=== PATIENT | female | born 1985 | race Caucasian/White ===

== ENCOUNTER 2018-07-27 15:33 | Emergency (ER) | payer SELFPAY ==
[~2018-07-27] VITALS: Ht 160 cm; Wt 52.5 kg
[2018-07-27] MEDS ORDERED: CLIN150C14 PO (16:15)
[2018-07-27] MEDS ORDERED: HYDR-971 PO (16:15)
--- NOTE | 2018-07-27 16:15 | PHYS DOC ---
Adult General Chief Complaint Chief Complaint: DENTAL PROBLEM HPI HPI Patient is a 32 year old female who presents with comparing of dental pain for 1 week. Patient states she had dental pain and seen at [facility] and treated with clindamycin and [place] with partial improvement of pain but because her dental appointment is 2 and half weeks from now her pain returned one week ago as a sharp and constant pain with radiation to her left ear. Patient is currently smoking. Review of Systems Review of Systems Constitutional: Denies fever or chills [] Eyes: Denies change in visual acuity, redness, or eye pain [] HENT: Denies nasal congestion or sore throat [] Respiratory: Denies cough or shortness of breath [] Cardiovascular: No additional information not addressed in HPI [] GI: Denies abdominal pain, nausea, vomiting, bloody stools or diarrhea [] : Denies dysuria or hematuria [] Musculoskeletal: Denies back pain or joint pain [] Integument: Denies rash or skin lesions [] Neurologic: Denies headache, focal weakness or sensory changes [] Endocrine: Denies polyuria or polydipsia [] All other systems were reviewed and found to be within normal limits, except as documented in this note. Allergies Allergies Allergies Coded Allergies Type Severity Reaction Last Updated Verified NSAIDS (Non-Steroidal Anti-Inflamma Allergy Unknown 07/27/18 Yes Penicillins Allergy Unknown 07/27/18 Yes Physical Exam Physical Exam Constitutional: Well developed, well nourished, mild distress, non-toxic appearance. [] HENT: Normocephalic, atraumatic, bilateral external ears normal, oropharynx moist, no oral exudates, nose normal, large cavity in tooth #19 with tenderness without abscess. [] Eyes: PERRLA, EOMI, conjunctiva normal, no discharge. [] Neck: Normal range of motion, no tenderness, supple, no stridor. [] Cardiovascular:Heart rate regular rhythm, no murmur [] Lungs & Thorax: Bilateral breath sounds clear to auscultation [] Extremities: No tenderness, no cyanosis, no clubbing, ROM intact, no edema. [] Neurologic: Alert and oriented X 3, normal motor function, normal sensory function, no focal deficits noted. [] Psychologic: Affect anxious, judgement normal, mood normal. [] EKG EKG [] Radiology/Procedures Radiology/Procedures [] Course & Med Decision Making Course & Med Decision Making discharge: I've spoken with the patient and/or caregivers. I've explained the patient's condition, diagnosis and treatment plan based on information available to me at this time. I've answered the patient's and/or caregivers questions and addressed any concerns. The patient and/or caregivers have a good understanding the patient's diagnosis, condition and treatment plan as can be expected at this point. Vital signs have been stabilized. The patient's condition is stable for discharge from the emergency department. The patient will pursue further outpatient evaluation with her primary care provider or other designated consulting physician as outlined in the discharge instructions. Patient and/or caregivers are agreeable to this plan of care and follow-up instructions have been explained in detail. The patient and/or caregivers have received these instructions in written format and expressed understanding of these discharge instructions. The patient and her caregivers are aware that if any significant change in condition or worsening of symptoms should prompt him to immediately return to this of the closest emergency department. If an emergent department is not readily available I would encourage him to call 911. Akshat Disclaimer Dragon Disclaimer This electronic medical record was generated, in whole or in part, using a voice recognition dictation system. Departure Departure: Impression: Primary Impression: Dentalgia Additional Impressions: Dental cavity Tobacco abuse Tobacco abuse counseling Disposition: HOME, SELF-CARE (at 1612) Referrals: PCPJERMAN (PCP) Patient Instructions: Dental Caries, Smoking Cessation, Tips For Success, Toothache-Brief Additional Instructions: Follow-up with your dentist appointment Scripts Hydrocodone Bit/Acetaminophen (NORCO 5-325 TABLET) 1 Each Tablet 1 TAB PO PRN Q6HRS PRN for PAIN, #10 TAB 0 Refills Prov: LAILA REBOLLEDO MD 07/27/18 Clindamycin Hcl (CLINDAMYCIN HCL) 150 Mg Capsule 1 CAP PO TID, #30 CAP Prov: LAILA REBOLLEDO MD 07/27/18 Problem Qualifiers LAILA REBOLLEDO MD Jul 27, 2018 16:15
[2018-07-27 16:30] VITALS: BP 101/76
== END 2018-07-27 16:30 | disposition home or self-care (01) ==
LOC: ER 15:33
DX: K02.9 Dental caries, unspecified (principal); Z72.0 Tobacco use; Z71.6 Tobacco abuse counseling; Z88.6 Allergy status to analgesic agent; Z88.0 Allergy status to penicillin
CPT/HCPCS: 99283

== ENCOUNTER 2020-01-03 18:58 | Emergency (ER) | payer OTHER ==
[~2020-01-03] VITALS: Ht 160 cm; Wt 52.5 kg
[~2020-01-03 18:58] MED LIST: CLIN150C14 PO; HYDR-3165 PO
--- NOTE | 2020-01-03 19:04 | PHYS DOC ---
Past History Past Medical History: Depression Past Surgical History: Tubal ligation Adult General Chief Complaint Chief Complaint: ".. I think I got MRSA again.. I got this bump on my Rt. butt cheek... it just gotten worse the last 4 days... ".." I can't sit down now because of the pain. ..." HPI HPI Patient is a 34 year old female who presents with above hx and complaints cellulitis and abscess on her right gluteal area. Has a central abscess approximately 2 cm and surrounding erythema of approximately 8-12 cm diameter. Patient has had 1 previous episode of MRSA on her arm. Patient denies any history immunosuppression or HIV. Patient denies any travel or specific ill contacts. Patient no travel outside the state. Patient does not remember her last tetanus vaccination. Patient states she is allergic to penicillin but has taken Keflex in the past. Review of Systems Review of Systems Constitutional: Denies fever or chills [] Eyes: Denies change in visual acuity, redness, or eye pain [] HENT: Denies nasal congestion or sore throat [] Respiratory: Denies cough or shortness of breath [] Cardiovascular: No additional information not addressed in HPI [] GI: Denies abdominal pain, nausea, vomiting, bloody stools or diarrhea [] : Denies dysuria or hematuria [] Musculoskeletal: Denies back pain or joint pain [] Integument: Denies rash or skin lesions . The patient []complaints of right gluteal abscess. Neurologic: Denies headache, focal weakness or sensory changes [] Endocrine: Denies polyuria or polydipsia [] All other systems were reviewed and found to be within normal limits, except as documented in this note. Family History Family History Noncontributory to presentation Current Medications Current Medications See nursing for home meds Allergies Allergies Allergies Coded Allergies Type Severity Reaction Last Updated Verified NSAIDS (Non-Steroidal Anti-Inflamma Allergy Unknown 07/27/18 Yes Penicillins Allergy Unknown 07/27/18 Yes Physical Exam Physical Exam Constitutional: in acute distress, non-toxic appearance. [] HENT: Normocephalic, atraumatic, bilateral external ears normal, oropharynx moist, no oral exudates, nose normal. [] Eyes: PERRLA, EOMI, conjunctiva normal, no discharge. [] Neck: Normal range of motion, no tenderness, supple, no stridor. [] Cardiovascular:Heart rate regular rhythm, no murmur [] Lungs & Thorax: Bilateral breath sounds equal apex with scattered wheezes on auscultation [] Abdomen: Bowel sounds normal, soft, no tenderness, no masses, no pulsatile masses. [] Old surgery scars Skin: Warm, dry, no erythema, no rash. Right gluteal abscess and cellulitis as per history of present illness. Back: No tenderness, no CVA tenderness. [] Extremities: No tenderness, no cyanosis, no clubbing, ROM intact, no edema. [] Neurologic: Alert and oriented X 3, normal motor function, normal sensory function, no focal deficits noted. [] Psychologic: Affect normal, judgement normal, mood normal. [] EKG EKG [] Radiology/Procedures Radiology/Procedures [] Course & Med Decision Making Course & Med Decision Making Pertinent Labs and Imaging studies reviewed. (See chart for details) Procedure Note: Incision and drainage-Area cellulitis cleaned extensively with Betadine. Incision with 11 blade x 1 stick. Appeared to have adequate drainage of pus Patient is to do frequent sitz baths or showers. Patient use warm compresses of salt and or Epsom salts. 4 times a day. Massage Polysporin into the area 4 times a day after compresses. Take Bactrim DS twice a day. Follow-up primary care. Return if any concerns. Impression: 1. Cellulitis / Abscess [] Dragon Disclaimer Dragon Disclaimer This electronic medical record was generated, in whole or in part, using a voice recognition dictation system. Departure Departure: Disposition: HOME/RESIDENCE PRIOR TO ADM Condition: STABLE Referrals: PCP,NO (PCP) Scripts Sulfamethoxazole/Trimethoprim (BACTRIM DS TABLET) 1 Each Tablet 1 TAB PO BID for abscess for 10 Days, #20 TAB 0 Refills Prov: CHRISTIANNE SCHROEDER MD 01/03/20 Akshat Disclaimer This chart was dictated in whole or in part using Voice Recognition software in a busy, high-work load, and often noisy Emergency Department environment. It may contain unintended and wholly unrecognized errors or omissions. CHRISTIANNE SCHROEDER MD Jan 03, 2020 19:04
[2020-01-03 19:27] VITALS: BP 102/68
[2020-01-03] MEDS ORDERED: SULF1TAB24 PO (19:42)
[2020-01-03] MEDS ORDERED: SMZ/TMP 800/160MG TABLET. PO ONE (19:45)
[2020-01-03] MEDS ORDERED: MORPHINE SULFATE 10 MG/ML SYRINGE. SQ ONE (19:45)
[2020-01-03] MEDS ORDERED: DIPH,PERTUSS(ACELL),TET VAC/PF 0.5 ML SYRINGE. VAX IM ONE (19:45)
== END 2020-01-03 21:00 | disposition home or self-care (01) ==
LOC: ER 18:58
DX: L02.31 Cutaneous abscess of buttock (principal); L03.317 Cellulitis of buttock; Z88.0 Allergy status to penicillin; Z88.6 Allergy status to analgesic agent
CPT/HCPCS: 10060; 90471; 90715; 96372; J2270; 99284-25

== ENCOUNTER 2020-01-14 13:24 | Emergency (ER) | payer OTHER ==
[~2020-01-14] VITALS: Ht 160 cm; Wt 53.1 kg
[2020-01-14 13:24] VITALS: BP 113/70
[~2020-01-14 13:24] MED LIST changes: +SULF1TAB24 PO
--- NOTE | 2020-01-14 14:28 | RAD ---
RIBS LEFT AND PA CHEST History: Fall Comparison: None. Findings: 2 views of the chest and 3 additional views of the left ribs are submitted. There is no pneumothorax, pleural fluid, infiltrate. Heart size is within normal limits. No displaced left rib fracture is identified. Appearance of lucency of the left lateral fifth rib on one view is believed to be artifactual as not seen on other views. Impression: 1. No displaced left rib fracture is identified by radiographs. Electronically signed by: Alan Scruggs MD (01/14/2020 2:25 PM) [facility]
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
== END 2020-01-14 15:00 | disposition home or self-care (01) ==
LOC: ER 13:24
DX: S20.212A Contusion of left front wall of thorax, initial encounter (principal); Z88.6 Allergy status to analgesic agent; Z88.0 Allergy status to penicillin; Y04.0XXA Assault by unarmed brawl or fight, initial encounter; Y93.89 Activity, other specified; Y92.89 Other specified places as the place of occurrence of the external cause; Y99.8 Other external cause status
CPT/HCPCS: 71101; 99283

== ENCOUNTER 2020-05-19 09:38 | Emergency (ER) | payer OTHER ==
[~2020-05-19] VITALS: Ht 160 cm; Wt 53.2 kg
[2020-05-19] MEDS ORDERED: ASPIRIN CHEWABLE 81 MG TABLET. ONE (09:58)
[2020-05-19 10:00] VITALS: BP 126/60
[2020-05-19] MEDS ORDERED: ASPIRIN CHEWABLE 81 MG TABLET. PO ONE (10:45)
--- NOTE | 2020-05-19 10:46 | PHYS DOC ---
Past History Past Medical History: No Pertinent History Past Surgical History: No Surgical History Smoking: Cigarettes Alcohol Use: None Adult General Chief Complaint Chief Complaint: CHEST PAIN HPI HPI Patient is a 34-year-old female presents for left-sided chest pain. Onset was 2 days ago without any known inciting event. Palpation to chest wall makes worse, nothing known makes better. Pain described as "it feels like a pulled a muscle", has been constant since onset, and rated a 7 out of 10 for pain severity. Nothing is been taken for the pain since onset. It is present during activity and at rest. Patient admits history of arrhythmia, anxiety, and tobacco abuse. Patient denies any personal cardiac history or early family history of cardiac disease. Ongoing chest pain while watching her children concerned her causing her to present to our ER for further evaluation Review of Systems Review of Systems Fourteen body systems of review of systems have been reviewed. See HPI for pertinent positives and negative responses, other kwong all other systems are negative, non-pertinent or non-contributory Current Medications Current Medications Current Medications Medications (Trade) Dose Ordered Sig/Luis Miguel Start Time Stop Time Status Last Admin Dose Admin Aspirin (Aspirin Chewable) 81 mg STK-MED ONCE 05/19/20 09:58 05/19/20 09:58 DC Allergies Allergies Allergies Coded Allergies Type Severity Reaction Last Updated Verified NSAIDS (Non-Steroidal Anti-Inflamma Allergy Unknown 07/27/18 Yes Penicillins Allergy Unknown 07/27/18 Yes Physical Exam Physical Exam Constitutional: Well developed, well nourished, no acute distress, non-toxic appearance. [] HENT: Normocephalic, atraumatic, bilateral external ears normal, oropharynx moist, no oral exudates, nose normal. [] Eyes: PERRLA, EOMI, conjunctiva normal, no discharge. [] Neck: Normal range of motion, no tenderness, supple, no stridor. [] Cardiovascular:Heart rate regular rhythm, no murmur [] Lungs & Thorax: Bilateral breath sounds clear to auscultation [] Abdomen: Bowel sounds normal, soft, no tenderness, no masses, no pulsatile masses. [] Skin: Warm, dry, no erythema, no rash. [] Back: No tenderness, no CVA tenderness. [] Extremities: No tenderness, no cyanosis, no clubbing, ROM intact, no edema. [] Neurologic: Alert and oriented X 3, normal motor function, normal sensory function, no focal deficits noted. [] Psychologic: Affect normal, judgement normal, mood normal. [] Current Patient Data Vital Signs Vital Signs Date Time Temp Pulse Resp B/P (MAP) Pulse Ox O2 Delivery O2 Flow Rate FiO2 05/19/20 10:00 97.9 90 16 126/60 (82) 99 Room Air Lab Results Laboratory Tests Test 05/19/20 10:06 05/19/20 12:00 White Blood Count 10.2 x10^3/uL Red Blood Count 4.37 x10^6/uL Hemoglobin 11.5 g/dL Hematocrit 35.8 % Mean Corpuscular Volume 82 fL Mean Corpuscular Hemoglobin 26 pg Mean Corpuscular Hemoglobin Concent 32 g/dL Red Cell Distribution Width 16.5 % Platelet Count 217 x10^3/uL Neutrophils (%) (Auto) 69 % Lymphocytes (%) (Auto) 20 % Monocytes (%) (Auto) 10 % Eosinophils (%) (Auto) 1 % Basophils (%) (Auto) 0 % Neutrophils # (Auto) 7.0 x10^3uL Lymphocytes # (Auto) 2.1 x10^3/uL Monocytes # (Auto) 1.0 x10^3/uL Eosinophils # (Auto) 0.1 x10^3/uL Basophils # (Auto) 0.0 x10^3/uL Sodium Level 138 mmol/L Potassium Level 3.7 mmol/L Chloride Level 104 mmol/L Carbon Dioxide Level 25 mmol/L Anion Gap 9 Blood Urea Nitrogen 11 mg/dL Creatinine 0.9 mg/dL Estimated GFR (Cockcroft-Gault) 70.8 BUN/Creatinine Ratio 12 Glucose Level 110 mg/dL Calcium Level 8.7 mg/dL Total Bilirubin 0.3 mg/dL Aspartate Amino Transf (AST/SGOT) 15 U/L Alanine Aminotransferase (ALT/SGPT) 20 U/L Alkaline Phosphatase 56 U/L Creatine Kinase 91 U/L Troponin I Quantitative < 0.017 ng/mL Total Protein 6.6 g/dL Albumin 3.8 g/dL Albumin/Globulin Ratio 1.4 Urine Collection Type Unknown Urine Color Straw Urine Clarity Hazy Urine pH 7.0 Urine Specific [place] 1.015 Urine Protein Neg Urine Glucose (UA) Neg mg/dL Urine Ketones (Stick) Neg mg/dL Urine Blood Trace Urine Nitrite Neg Urine Bilirubin Neg Urine Urobilinogen Dipstick 0.2 mg/dL Urine Leukocyte Esterase Neg Urine RBC 1-2 /HPF Urine WBC 1-4 /HPF Urine Squamous Epithelial Cells Mod /LPF Urine Bacteria Few /HPF Current Medications Medications (Trade) Dose Ordered Sig/Luis Miguel Route PRN Reason Start Time Stop Time Status Last Admin Dose Admin Aspirin (Aspirin Chewable) 81 mg STK-MED ONCE .ROUTE 05/19/20 09:58 05/19/20 09:58 DC Aspirin (Aspirin Chewable) 324 mg 1X ONCE PO 05/19/20 10:45 05/19/20 10:51 DC Sodium Chloride 1,000 ml @ 1,000 mls/hr 1X ONCE IV 05/19/20 11:00 05/19/20 11:59 DC 05/19/20 10:05 EKG EKG EKG ordered and obtained by myself at 1001 hrs. as normal sinus rhythm at 71 bpm, unremarkable intervals, no axis deviation, no ischemic findings, no STEMI Radiology/Procedures Radiology/Procedures PROCEDURE: CHEST AP ONLY CHEST AP ONLY INDICATION: Reason: chest pain / Spl. Instructions: / History: . COMPARISON STUDY: 01/14/2020. FINDINGS: Lungs: Normal lung volume. No pulmonary mass or consolidation. The tracheobronchial tree and hilar structures are normal. Pleura: No pleural effusion or pneumothorax. Heart and Mediastinum: The cardiomediastinal silhouette is normal. The great vessels of the thorax are normal. IMPRESSION: No acute cardiopulmonary process. Electronically signed by: Alan Rg MD (05/19/2020 11:50 AM) [id number] Course & Med Decision Making Course & Med Decision Making Patient seen by myself on immediate ED arrival Vital signs stable, patient administered 1 L normal saline and 4 baby aspirin Comprehensive history and physical exam revealed likely costochondritis; however, could not definitively rule out ACS Pertinent lab and imaging performed Nonetheless, in the middle of patient's ED work-up, patient verbalized that she wanted to leave Patient who had full capacity was educated on the dangers of leaving mid work- up; however, she cited that she was worried about her children at home and did not want to be here anymore Patient understood the risks of leaving AGAINST MEDICAL ADVICE and subsequently signed out AMA Patient was advised to follow-up with primary care in outpatient setting or return to ED for further evaluation as needed Dragon Disclaimer Akshat Disclaimer This electronic medical record was generated, in whole or in part, using a voice recognition dictation system. Departure Departure: Impression: Primary Impression: Left against medical advice Additional Impression: Chest pain Disposition: HOME/RESIDENCE PRIOR TO ADM Condition: STABLE Referrals: PCP,NO (PCP) Justification of Admission: Justification of Admission: Justification of Admission Dx: N/A Problem Qualifiers SYLVESTER PARAMR DO May 19, 2020 10:46
[2020-05-19 10:55] LABS: BASO % 0 % (0-3); EOS # 0.1 x10^3/uL (0.0-0.7); EOS % 1 % (0-3); HEMATOCRIT 35.8 % (36.0-47.0); HEMOGLOBIN 11.5 g/dL (12.0-15.5); LYMPH # 2.1 x10^3/uL (1.0-4.8); LYMPH % 20 % (24-48); MEAN CORPUSCULAR HEMOGLOBIN 26 pg (25-35); MEAN CORPUSCULAR HGB CONC 32 g/dL (31-37); MEAN CORPUSCULAR VOLUME 82 fL (79-100); MONO % 10 % (0-9); NEUT % 69 % (31-73); PLATELET COUNT 217 x10^3/uL (140-400); RED BLOOD COUNT 4.37 x10^6/uL (3.50-5.40); RED CELL DISTRIBUTION WIDTH 16.5 % (11.5-14.5); WHITE BLOOD COUNT 10.2 x10^3/uL (4.0-11.0)
[2020-05-19 10:58] LABS: CALCIUM 8.7 mg/dL (8.5-10.1); CREATININE 0.9 mg/dL (0.6-1.0); GFR 70.8; POTASSIUM 3.7 mmol/L (3.5-5.1)
[2020-05-19] MEDS ORDERED: IV NORMAL SALINE 1,000ML 1,000 ML IV ONE (11:00)
[2020-05-19 11:04] LABS: ALBUMIN 3.8 g/dL (3.4-5.0); ALBUMIN/GLOBULIN RATIO 1.4 (1.0-1.7); TOTAL BILIRUBIN 0.3 mg/dL (0.2-1.0); TOTAL PROTEIN 6.6 g/dL (6.4-8.2)
--- NOTE | 2020-05-19 11:53 | RAD ---
CHEST AP ONLY INDICATION: Reason: chest pain / Spl. Instructions: / History: . COMPARISON STUDY: 01/14/2020. FINDINGS: Lungs: Normal lung volume. No pulmonary mass or consolidation. The tracheobronchial tree and hilar structures are normal. Pleura: No pleural effusion or pneumothorax. Heart and Mediastinum: The cardiomediastinal silhouette is normal. The great vessels of the thorax are normal. IMPRESSION: No acute cardiopulmonary process. Electronically signed by: Alan Rg MD (05/19/2020 11:50 AM) [id number]
[2020-05-19 12:45] LABS: BACTERIA,URINE FEW /HPF (0-FEW); BILIRUBIN,URINE NEG (NEG); CLARITY,URINE HAZY; COLOR,URINE STRAW; GLUCOSE,URINE NEG (NEG); NITRITE,URINE NEG (NEG); SQUAMOUS EPITHELIAL CELL,UR MOD /LPF; UROBILINOGEN,URINE 0.2 mg/dL (0.2 mg/dL)
--- NOTE | 2020-05-19 14:09 | EKG ---
[address] [address] Test Date: 2020-05-19 Test Time: 09:56:47 Pat Name: JR MISTRY Department: Room: Gender: F Architecture Technician: RG : [id number] Requested By: SYLVESTER PARMAR Order Number: [id number] Reading MD: Measurements Intervals [place] Rate: 71 P: 63 MA: 152 QRS: 66 QRSD: 78 T: 53 QT: 384 QTc: 422 Interpretive Statements Cannot analyze ECG CHEST LEAD(S) MISSING! (Measurements might be questionable) RI6.02 Compared to ECG 05/19/2020 07:39:27 Left-axis deviation no longer present
== END 2020-05-19 13:00 | disposition left against medical advice (07) ==
LOC: ER 09:38
DX: R07.89 Other chest pain (principal); F17.210 Nicotine dependence, cigarettes, uncomplicated; F41.9 Anxiety disorder, unspecified; Z88.6 Allergy status to analgesic agent; Z88.0 Allergy status to penicillin
CPT/HCPCS: 36415; 71045; 80053; 81001; 82550; 84484; 85025; 93005; 96360; 96361; 99285; J7030

== ENCOUNTER 2020-08-14 22:00 | Emergency (ER) | payer OTHER ==
[~2020-08-14] VITALS: Ht 160 cm; Wt 53.2 kg
[2020-08-14 22:00] VITALS: BP 105/52
[2020-08-14] MEDS ORDERED: CLIN150C14 PO (22:23)
[2020-08-14] MEDS ORDERED: IBUP-1673 PO (22:23)
--- NOTE | 2020-08-14 22:26 | PHYS DOC ---
Past History Past Medical History: No Pertinent History Past Surgical History: No Surgical History Smoking: Cigarettes Alcohol Use: None General Adult EDM: Chief Complaint: DENTAL PROBLEM HPI: HPI: History obtained from patient. Patient is a 34-year-old female who presents with a chief complaint of tooth pain over the past 3 to 4 days. Denies any direct trauma or recent injury. States she has had dental issues for a while. States she is in the process of getting dental implants from her dentist. She states that the pain has been increasing from her right upper molar for the past several days. States pain is worse when she chews. Denies any fevers. Denies any dysphagia or diet aphasia. Denies any fevers. Denies vomiting. Has tried Tylenol at home with minimal relief. Denies any recent antibiotics. Denies any swelling to the jaw or face. Denies drainage of the mouth. No other complaints. Review of Systems: Review of Systems: Constitutional: Denies fever or chills Eyes: Denies change in visual acuity HENT: Positive for dental pain Respiratory: Denies cough or shortness of breath Cardiovascular: Denies chest pain or edema GI: Denies abdominal pain, nausea, vomiting, bloody stools or diarrhea : Denies dysuria Musculoskeletal: Denies back pain or joint pain Integument: Denies rash Neurologic: Denies headache, focal weakness or sensory changes Endocrine: Denies polyuria or polydipsia Lymphatic: Denies swollen glands Psychiatric: Denies depression or anxiety Current Medications: Current Meds: Current Medications Medications (Trade) Dose Ordered Sig/Luis Miguel Start Time Stop Time Status Last Admin Dose Admin Acetaminophen/ Hydrocodone Bitart (Lortab 5/325) 1 tab 1X ONCE 08/14/20 22:30 08/14/20 22:31 UNV Clindamycin HCl (Cleocin) 300 mg 1X ONCE 08/14/20 22:30 08/14/20 22:31 UNV Allergies: Allergies: Allergies Coded Allergies Type Severity Reaction Last Updated Verified NSAIDS (Non-Steroidal Anti-Inflamma Allergy Unknown 07/27/18 Yes Penicillins Allergy Unknown 07/27/18 Yes Physical Exam: PE: Constitutional: Well developed, well nourished, no acute distress, non-toxic appearance. [] ENT: Numerous dental caries without overt evidence of periapical abscess formation. mild tenderness to tooth 1 percussion. Tolerates saliva. No trismus. No erythema or exudate of the oropharynx. No airway obstruction or deep space infection. Normal phonation. Uvula midline. NECK: No midline cervical tenderness. Anterior cervical adenopathy [] present. No tenderness of carotid sheath bilaterally. No submental tenderness, swelling, or erythema. Neck supple with full ROM and without signs of meningismus. Eyes: PERRLA, EOMI, conjunctiva normal, no discharge. [] Neck: Normal range of motion, no tenderness, supple, no stridor. [] Cardiovascular:Heart rate regular rhythm, no murmur [] Lungs & Thorax: Bilateral breath sounds clear to auscultation [] Abdomen: soft, no tenderness, no masses, no pulsatile masses. [] Skin: Warm, dry, no erythema, no rash. [] Back: No tenderness, no CVA tenderness. [] Extremities: No tenderness, no cyanosis, no clubbing, ROM intact, no edema. [] Neurologic: Alert and oriented X 3, normal motor function, normal sensory function, no focal deficits noted. [] Psychologic: Affect normal, judgement normal, mood normal. [] EKG: EKG: [] Radiology/Procedures: Radiology/Procedures: [] Heart Score: Risk Factors: Risk Factors: DM, Current or recent (<one month) smoker, HTN, HLP, family history of CAD, obesity. Risk Scores: Score 0 - 3: 2.5% MACE over next 6 weeks - Discharge Home Score 4 - 6: 20.3% MACE over next 6 weeks - Admit for Clinical Observation Score 7 - 10: 72.7% MACE over next 6 weeks - Early Invasive Strategies Course & Med Decision Making: Course & Med Decision Making Pertinent Labs and Imaging studies reviewed. (See chart for details) Patient is overall well-appearing 34-year-old female presents to complaint of dental pain over the past few days. Vital signs unremarkable. Exam overall reassuring. No signs of deep space infection. She was given oral clindamycin given her reported allergy to penicillins. She was encouraged on the usage of anti-inflammatories. She does state that she has had itching to follow-up with closely. At this point I estimate that the patient is low risk for an emergent etiology such as; acute necrotizing ulcerative gingivitis, retropharyngeal abscess, peritonsillar abscess, Cliff's Angina, bacterial meningitis, unstable cervical fracture, or airway compromise. There is a very small possibility that any of these conditions (or others) could potentialy be in the very early stages and/or could develop in the near future, but at this point, I consider discharge a reasonable course of action. Akshat Disclaimer: Akshat Disclaimer: This electronic medical record was generated, in whole or in part, using a voice recognition dictation system. Departure Departure: Disposition: 01 HOME SELF CARE/HOMELESS Condition: STABLE Referrals: PCPJERMAN (PCP) Patient Instructions: Dental Caries Additional Instructions: Please follow-up with your dentist in the next week. Scripts Ibuprofen (IBUPROFEN) 200 Mg Tablet 600 MG PO QIDPRN PRN for PAIN, #15 TAB Prov: STACI ABRAMS DO 08/14/20 Clindamycin Hcl (CLINDAMYCIN HCL) 150 Mg Capsule 450 MG PO TID for infection for 7 Days, #63 CAP Prov: STACI ABRAMS DO 08/14/20 STACI ABRAMS DO Aug 14, 2020 22:26
[2020-08-14] MEDS ORDERED: CLINDAMYCIN HCL 150 MG CAPSULE PO ONE ×3 (22:30)
[2020-08-14] MEDS ORDERED: HYDROcodone/APAP 5/325MG 1 TAB TABLET PO ONE (22:30)
== END 2020-08-14 22:35 | disposition home or self-care (01) ==
LOC: ER 22:00
DX: K02.9 Dental caries, unspecified (principal); R59.0 Localized enlarged lymph nodes; F17.210 Nicotine dependence, cigarettes, uncomplicated; Z88.0 Allergy status to penicillin; Z88.6 Allergy status to analgesic agent
CPT/HCPCS: 99283

== ENCOUNTER 2020-09-21 16:58 | Emergency (ER) | payer OTHER ==
[~2020-09-21] VITALS: Ht 162.6 cm; Wt 48.9 kg
[~2020-09-21 16:58] MED LIST changes: +IBUP-1673 PO
[2020-09-21 17:15] VITALS: BP 106/74
--- NOTE | 2020-09-21 17:59 | PHYS DOC ---
Past History Past Medical History: No Pertinent History (HANY ROMERO APRN) Past Surgical History: No Surgical History (HANY ROMERO APRN) Smoking: Cigarettes Alcohol Use: None (HANY ROMERO APRN) Adult General Chief Complaint Chief Complaint: SHOULDER INJURY HPI HPI Patient is a 34-year-old female presents emergency department with complaints of left shoulder pain that started 5 days ago after lifting her 4 and 5-year-old sons up while they were playing. Patient states that she has strained the shoulder in the past, and this is very similar to previous shoulder strains. Patient denies any chest pains, shortness of breath, cough, congestion, tingling or numbness down the left extremity. Patient states the last time she was here they gave her a prescription for Nellis which helped her. Patient reports she had a hysterectomy in 2016 and could not be . Patient denies any abdominal pains, urinary symptoms. Patient denies any other health complaints or health illnesses. Patient denies having the COVID-19 virus symptoms and does not wish to be tested for the COVID-19 virus today. (HANY ROMERO APRN) Review of Systems Review of Systems 14 body systems of review of systems have been reviewed. See HPI for pertinent positives and negative responses, otherwise all other systems are negative, nonpertinent or noncontributory. (HANY ROMERO APRN) Current Medications Current Medications Patient denies take any prescription medicines at home. (HANY ROMERO APRN) Allergies Allergies Allergies Coded Allergies Type Severity Reaction Last Updated Verified NSAIDS (Non-Steroidal Anti-Inflamma Allergy Unknown 07/27/18 Yes Penicillins Allergy Unknown 07/27/18 Yes (HANY ROMERO APRN) Physical Exam Physical Exam Constitutional: Well developed, well nourished, no acute distress, non-toxic appearance. [] HENT: Normocephalic, atraumatic, bilateral external ears normal, oropharynx moist, no oral exudates, nose normal. [] Eyes: PERRLA, EOMI, conjunctiva normal, no discharge. [] Neck: Normal range of motion, no tenderness, supple, no stridor. [] Cardiovascular:Heart rate regular rhythm, no murmur [] Lungs & Thorax: Bilateral breath sounds clear to auscultation [] Abdomen: Bowel sounds normal, soft, no tenderness, no masses, no pulsatile masses. [] Skin: Warm, dry, no erythema, no rash. [] Back: No tenderness, no CVA tenderness. Tenderness to palpation of the left infraspinatus muscle, marked muscle spasm. Extremities: No tenderness, no cyanosis, no clubbing, ROM intact, no edema. Full AROM/PROM of left upper extremity, brisk less than 2 seconds distal cap refill, left upper extremity remains neurovascular intact. Neurologic: Alert and oriented X 3, normal motor function, normal sensory function, no focal deficits noted. [] Psychologic: Affect normal, judgement normal, mood normal. [] (HANY ROMERO APRN) EKG EKG [] (HANY ROMERO APRN) Radiology/Procedures Radiology/Procedures [] (HANY ROMERO APRN) Heart Score Risk Factors: Risk Factors: DM, Current or recent (<one month) smoker, HTN, HLP, family history of CAD, obesity. Risk Scores: Risk Factors: DM, Current or recent (<one month) smoker, HTN, HLP, family history of CAD, obesity. (HANY ROMERO APRN) Course & Med Decision Making Course & Med Decision Making Pertinent Labs and Imaging studies reviewed. (See chart for details) 34-year-old female presents emergency department with reports of strain in her left shoulder after picking her porch 5-year-old sons up [address] ates that she is unable to take NSAIDs and can only take Tylenol. Patient states that the last time she was here she was given Nellis which helped with her pain. Physical examination was consistent with left shoulder strain, will give 80 of Depo-Medrol IM in the emergency department, 10 mg Flexeril, 5/325 mg Nellis p.o., Will write prescriptions for home for 10 mg Flexeril p.o. D iscussed diagnosis of left shoulder strain with patient, discharge home instructions, discharge prescriptions, patient gave verbal understanding of these instructions and prescription instructions, had no further questions or concerns, discharged home without incident. Diagnosis left shoulder strain, unlikely cardiac event related to no chest pain, no shortness of breath, no nausea. Unlikely extremity fracture related to no traumatic injury. (HANY ROMERO APRN) Course & Med Decision Making I have reviewed the MECHANICAL ASSEMBLY TECHNICIAN's note and plan of care. I was available for consultation as needed during the patient's visit in the emergency department. I agree with the clinical impression, plan, and disposition. (SYLVESTER PARMAR DO) Akshat Disclaimer Akshat Disclaimer This electronic medical record was generated, in whole or in part, using a voice recognition dictation system. (HANY ROMERO APRN) Departure Departure: Impression: Primary Impression: Left shoulder strain Disposition: 01 DC HOME SELF CARE/HOMELESS Condition: IMPROVED Referrals: RYAN WELCH MD (PCP) Additional Instructions: You have been diagnosed with a left shoulder strain, you have been given medications in the emergency department, we have discussed prescription instructions for Flexeril at home, you should take [id number] Tylenol as needed for pain. Return to the emergency department for worsening symptoms or other concerns. EMERGENCY DEPARTMENT GENERAL DISCHARGE INSTRUCTIONS Thank you for coming to [facility] (ED) today and trusting us with you care. We trust that you had a positivie experience in our Emergency Department. If you wish to speak to the department management, you may call the director at [phone]. YOUR FOLLOW UP INSTRUCTIONS ARE FOLLOWS: 1. Do you have a private Doctor? If you do not have a private doctor, please ask for a resource list of physicians or clinics that may be able to assist you with follow up care. 2. The Emergency Physician has interpreted your x-rays. The X-Ray specialist will also review them. If there is a change in the findings, you will be notified in 48 hours when at all possible. 3. A lab test or culture has been done, your results will be reviewed and you will be notified if you need a change in treatment. ADDITIONAL INSTRUCTIONS AND INFORMATION: 1. Your care today has been supervised by a physician who is specially trained in emergency care. Many problems require more than one evaluation for a complete diagnosis and treatment. We recommend that you schedule your follow up appointment as recommended to ensure complete treatment of you illness or injury. If you are unable to obtain follow up care and continue to have a problem, or if your condition worsens, we recommend that you return to the ED. 2. We are not able to safely determine your condition over the phone nor are we able to give sound medical advice over the phone. For these safety reasons, if you call for medical advice we will ask you to come to the ED for further evaluation. 3. If you have any questions regarding these discharge instructions please call the ED at [phone]. SAFETY INFORMATION: In the interest of safety, wellness, and injury prevention; we encourage you to wear your sealbelt, if you smoke; quite smoking, and we encourage family to use a protective helmet for bicycling and other sporting events that present an increased risk for head injury. IF YOUR SYMPTOMS WORSEN OR NEW SYMPTOMS DEVELOP, OR YOU HAVE CONCERNS ABOUT YOUR CONDITION; OR IF YOUR CONDITION WORSENS WHILE YOU ARE WAITING FOR YOUR FOLLOW UP APPOINTMENT; EITHER CONTACT YOUR PRIMARY CARE DOCTOR, THE PHYSICIAN WHOSE NAME AND NUMBER YOU WERE GIVEN, OR RETURN TO THE ED IMMEDIATELY. Scripts Cyclobenzaprine Hcl (CYCLOBENZAPRINE HCL) 10 Mg Tablet 1 TAB PO TID PRN PRN for PAIN, #12 TAB 0 Refills Prov: HANY ROMERO APRN 09/21/20 Problem Qualifiers Primary Impression: Left shoulder strain Encounter type: initial encounter Qualified Codes: S46.912A - Strain of unspecified muscle, fascia and tendon at shoulder and upper arm level, left arm, initial encounter HANY ROMERO APRN Sep 21, 2020 17:59 SYLVESTER PARMAR DO Sep 22, 2020 13:36
[2020-09-21] MEDS ORDERED: CYCL-331 PO (18:13)
[2020-09-21] MEDS ORDERED: CYCLOBENZAPRINE 10 MG TABLET. PO ONE (18:30)
[2020-09-21] MEDS ORDERED: HYDROcodone/APAP 5/325MG 1 TAB TABLET PO ONE (18:30)
[2020-09-21] MEDS ORDERED: methylPREDNISolone ACETATE 80 MG/ML VIAL. IM ONE (18:30)
== END 2020-09-21 18:35 | disposition home or self-care (01) ==
LOC: ER 16:58
DX: S46.912A Strain of unspecified muscle, fascia and tendon at shoulder and upper arm level, left arm, initial encounter (principal); F17.210 Nicotine dependence, cigarettes, uncomplicated; Z88.0 Allergy status to penicillin; Z88.6 Allergy status to analgesic agent; X50.0XXA Overexertion from strenuous movement or load, initial encounter; Y93.89 Activity, other specified; Y92.89 Other specified places as the place of occurrence of the external cause; Y99.8 Other external cause status
CPT/HCPCS: 96372; 99283; J1040

== ENCOUNTER 2021-01-01 15:45 | Emergency (ER) | payer OTHER ==
[~2021-01-01] VITALS: Ht 160 cm; Wt 54.5 kg
[~2021-01-01 15:45] MED LIST changes: -CLIN150C14 PO; +CLIN150C15 PO; +CYCL-331 PO
[2021-01-01] MEDS ORDERED: BENZOCAINE ONE 20% MUCOSAL SPRAY. (16:08)
[2021-01-01] MEDS ORDERED: BENZOCAINE ONE 20% MUCOSAL SPRAY. MM (16:15)
[2021-01-01] MEDS ORDERED: CLIN150C15 PO (16:52)
[2021-01-01] MEDS ORDERED: BENZ57SP MM (16:52)
--- NOTE | 2021-01-01 16:52 | PHYS DOC ---
Past History Past Medical History: Other Additional Past Medical Histor: SCIATICA Past Surgical History: No Surgical History Smoking: Cigarettes Alcohol Use: None Adult General Chief Complaint Chief Complaint: DENTAL PROBLEM HPI HPI Patient is a 35-year-old female presents emergency department complaining of a painful sore to the top of her mouth after having oral surgery a week ago. Patient states that she went to see her dentist and had a tooth removed, left upper molar a week ago related to dental caries and infectious process. Patient states she has been doing fine however has noticed a small lump on the top of her mouth that is now become painful, patient states that she has taken Tylenol, aspirin, tramadol, and Aleve this morning without any relief of pain however states she did put some Anbesol on the spot which helped some but her pain came back a 10/10 on a 1-10 pain scale. Patient denies any numbness or tingling to her mouth, denies loss of taste or loss of smell, denies nasal congestion or chest congestion shortness of breath, denies chest pain or chest palpitations. Patient denies any other physical complaints or physical concerns. Review of Systems Review of Systems 14 body systems of review of systems have been reviewed. See HPI for pertinent positives and negative responses, otherwise all other systems are negative, nonpertinent or noncontributory. Current Medications Current Medications Current Medications Medications (Trade) Dose Ordered Sig/Luis Miguel Start Time Stop Time Status Last Admin Dose Admin Benzocaine (Hurricaine One) 1 spray 1X ONCE 01/01/21 16:15 01/01/21 16:16 DC 01/01/21 16:15 1 SPRAY Allergies Allergies Allergies Coded Allergies Type Severity Reaction Last Updated Verified NSAIDS (Non-Steroidal Anti-Inflamma Allergy Unknown 01/01/21 Yes Penicillins Allergy Unknown 01/01/21 Yes Physical Exam Physical Exam Constitutional: Well developed, well nourished, no acute distress, non-toxic appearance. 35-year-old female in no apparent distress. HENT: Normocephalic, atraumatic, bilateral external ears normal, oropharynx moist, no oral exudates, nose normal. Oropharynx moist, pink, no uvular edema, no tonsillar edema, no peritonsillar infectious process appreciated, no postnasal drip. Healing gum at tooth extraction site left upper molar, patient has small nodular lesion at same parallel of tooth extraction near the top of her mouth, no open lesion, lesion is not fluctuant, lesion is not inflamed, manuelito sures approximately 2 mm in diameter. No trismus, no hypersalivation, no drooling, no airway obstruction, phonation normal, there is no lymphadenopathy of the head or neck appreciated. Bilateral TMs are within normal limits, there is no drainage from external auditory canals. Bilateral nasal turbinates are not erythematous, no drainage. Eyes: PERRLA, EOMI, conjunctiva normal, no discharge. Neck: Normal range of motion, no tenderness, supple, no stridor. No C-spine spinal tenderness, no nuchal rigidity, no meningismus signs Cardiovascular:Heart rate regular rhythm, heart sounds S1-S2 to auscultation. Lungs & Thorax: Bilateral breath sounds clear to auscultation, no adventitious lung sounds appreciated. Abdomen: Bowel sounds normal, soft, no tenderness, no masses, no pulsatile masses. Skin: Warm, dry, no erythema, no rash. Back: No tenderness, no CVA tenderness. Extremities: No tenderness, no cyanosis, no clubbing, ROM intact, no edema. Neurologic: Alert and oriented X 3, normal motor function, normal sensory function, no focal deficits noted. Psychologic: Affect normal, judgement normal, mood normal. Current Patient Data Vital Signs Vital Signs Date Time Temp Pulse Resp B/P (MAP) Pulse Ox O2 Delivery O2 Flow Rate FiO2 01/01/21 15:45 98.2 88 18 121/78 (92) 98 Room Air EKG EKG [] Radiology/Procedures Radiology/Procedures [] Heart Score C/O Chest Pain: No Risk Factors: Risk Factors: DM, Current or recent (<one month) smoker, HTN, HLP, family history of CAD, obesity. Risk Scores: Risk Factors: DM, Current or recent (<one month) smoker, HTN, HLP, family history of CAD, obesity. Course & Med Decision Making Course & Med Decision Making Pertinent Labs and Imaging studies reviewed. (See chart for details) 35-year-old female, vital signs reviewed, presents emergency department complaining of a painful lump near the top of her mouth for the past 3 days. Patient had oral surgery/tooth extraction a week ago at her dentist. Physical examination concerning for oral lesion, will place her skin spray on lesion in the ED today. Upon reevaluation of the patient, patient reports pain relief with Hurricaine spray. Discussed will give prescription for Hurricaine spray for home use 4 times daily, will start on clindamycin today with prescription, patient is to contact dentist today and have reevaluation as this lump may be attributed to her recent oral surgery. This is most likely related to a bone fragment remaining from tooth extraction versus early stomatitis versus mucocele. This is unlikely an oral cancer, squamous papilloma, nuov-czkx-lxx-mouth disease, oral candidiasis, low likelihood of torus plantains, cold sore, canker sore, or burn trauma. Patient was nontoxic in appearance, was in no respiratory distre ss. Patient gave verbal understanding of discharge home instructions, Hurricaine medication use, clindamycin antibiotic use, follow-up with dentist tomorrow, see PCP soon for ongoing problems, return to ER precautions or concerns, patient discharged home without incident. Dragon Disclaimer Dragon Disclaimer This electronic medical record was generated, in whole or in part, using a voice recognition dictation system. Departure Departure: Impression: Primary Impression: Oral mucosal lesion Disposition: 01 DC HOME SELF CARE/HOMELESS Condition: GOOD Referrals: RYAN WELCH MD (PCP) Additional Instructions: Please use Hurricaine spray and antibiotic as directed, encourage you to follow- up with your dentist this week the performed your tooth extraction for reevaluation of your oral cavity and dental problems. Please see Dr. Lewis for ongoing aches and pains, return to the emergency department for worsening symptoms or other concerns. EMERGENCY DEPARTMENT GENERAL DISCHARGE INSTRUCTIONS Thank you for coming to [facility] (ED) today and trusting us with you care. We trust that you had a positivie experience in our Emergency Department. If you wish to speak to the department management, you may call the director at [phone]. YOUR FOLLOW UP INSTRUCTIONS ARE FOLLOWS: 1. Do you have a private Doctor? If you do not have a private doctor, please ask for a resource list of physicians or clinics that may be able to assist you with follow up care. 2. The Emergency Physician has interpreted your x-rays. The X-Ray specialist will also review them. If there is a change in the findings, you will be notified in 48 hours when at all possible. 3. A lab test or culture has been done, your results will be reviewed and you will be notified if you need a change in treatment. ADDITIONAL INSTRUCTIONS AND INFORMATION: 1. Your care today has been supervised by a physician who is specially trained in emergency care. Many problems require more than one evaluation for a complete diagnosis and treatment. We recommend that you schedule your follow up appointment as recommended to ensure complete treatment of you illness or injury. If you are unable to obtain follow up care and continue to have a problem, or if your condition worsens, we recommend that you return to the ED. 2. We are not able to safely determine your condition over the phone nor are we able to give sound medical advice over the phone. For these safety reasons, if you call for medical advice we will ask you to come to the ED for further evaluation. 3. If you have any questions regarding these discharge instructions please call the ED at [phone]. SAFETY INFORMATION: In the interest of safety, wellness, and injury prevention; we encourage you to wear your sealbelt, if you smoke; quite smoking, and we encourage family to use a protective helmet for bicycling and other sporting events that present an increased risk for head injury. IF YOUR SYMPTOMS WORSEN OR NEW SYMPTOMS DEVELOP, OR YOU HAVE CONCERNS ABOUT YOUR CONDITION; OR IF YOUR CONDITION WORSENS WHILE YOU ARE WAITING FOR YOUR FOLLOW UP APPOINTMENT; EITHER CONTACT YOUR PRIMARY CARE DOCTOR, THE PHYSICIAN WHOSE NAME AND NUMBER YOU WERE GIVEN, OR RETURN TO THE ED IMMEDIATELY. Scripts Clindamycin Hcl (CLINDAMYCIN HCL) 150 Mg Capsule 450 MG PO TID for DENTAL INFECTION for 7 Days, #63 CAP 0 Refills Prov: HANY ROMERO APRN 01/01/21 Benzocaine (HURRICAINE) 57 Gm Ashley 57 GM MM QIDPRN PRN for PAIN IN ORAL CAVITY, #1 BOTTLE 0 Refills Prov: HANY ROMERO APRN 01/01/21 HANY ROMERO APRN Jan 01, 2021 16:52
== END 2021-01-01 16:55 | disposition home or self-care (01) ==
LOC: ER 15:45
DX: K13.70 Unspecified lesions of oral mucosa (principal); F17.210 Nicotine dependence, cigarettes, uncomplicated; Z88.0 Allergy status to penicillin; Z88.6 Allergy status to analgesic agent
CPT/HCPCS: 99283

== ENCOUNTER 2021-09-11 00:26 | Emergency (ER) | payer OTHER ==
[~2021-09-11] VITALS: Ht 160 cm; Wt 53.9 kg
[~2021-09-11 00:26] MED LIST changes: +BENZ57SP MM; -CLIN150C15 PO; +CLIN150C16 PO; -CYCL-331 PO; +CYCL10TA19 PO
[2021-09-11 00:35] VITALS: BP 149/93
--- NOTE | 2021-09-11 00:36 | PHYS DOC ---
Past History Past Medical History: No Pertinent History Additional Past Medical Histor: SCIATICA Past Surgical History: No Surgical History Smoking: Cigarettes Alcohol Use: None General Adult HPI: HPI: ".. I a m having bad dental... pain.. it going into my Rt ear..." Patient is a 35 year old female who presents with above hx and complaints dental pain in area of tooth 31 and 32. Patient has multiple areas of dental decay and gingivitis. No history immunosuppression. No history of CVA with contacts. No history of recent travel. Not currently following up with primary care. No trismus. Review of Systems: Review of Systems: Constitutional: Denies fever or chills Eyes: Denies change in visual acuity HENT: Complains of dental pain Respiratory: Denies cough or shortness of breath Cardiovascular: Denies chest pain or edema GI: Denies abdominal pain, nausea, vomiting, bloody stools or diarrhea : Denies dysuria Musculoskeletal: Denies back pain or joint pain Integument: Denies rash Neurologic: Denies headache, focal weakness or sensory changes Endocrine: Denies polyuria or polydipsia Lymphatic: Denies swollen glands Psychiatric: Denies depression or anxiety Family History: Family History: Noncontributory to presentation Current Medications: Current Meds: See nursing for home meds Allergies: Allergies: Allergies Coded Allergies Type Severity Reaction Last Updated Verified NSAIDS (Non-Steroidal Anti-Inflamma Allergy Unknown 01/01/21 Yes Penicillins Allergy Unknown 01/01/21 Yes Physical Exam: PE: Constitutional: Moderate acute distress, non-toxic appearance. [] HENT: Normocephalic, atraumatic, bilateral external ears normal, oropharynx moist, no oral exudates, nose normal. Multiple areas of dental decay. Multiple areas of gingivitis. Pain localized area of 31 and 32. No trismus Eyes: PERRLA, EOMI, conjunctiva normal, no discharge. [] Neck: Normal range of motion, no tenderness, supple, no stridor. [] Cardiovascular:Heart rate regular rhythm, no murmur [] Lungs & Thorax: Bilateral breath sounds equal apex with scattered wheezes on auscultation [] Abdomen: Bowel sounds normal, soft, no tenderness, no masses, no pulsatile masses. [] Skin: Warm, dry, no erythema, no rash. [] Back: No tenderness, no CVA tenderness. [] Extremities: No tenderness, no cyanosis, no clubbing, ROM intact, no edema. [] Neurologic: Alert and oriented X 3, normal motor function, normal sensory func tion, no focal deficits noted. [] Psychologic: Affect anxious, judgement normal, mood normal. [] EKG: EKG: [] Radiology/Procedures: Radiology/Procedures: [] Heart Score: C/O Chest Pain: N/A Risk Factors: Risk Factors: DM, Current or recent (<one month) smoker, HTN, HLP, family history of CAD, obesity. Risk Scores: Score 0 - 3: 2.5% MACE over next 6 weeks - Discharge Home Score 4 - 6: 20.3% MACE over next 6 weeks - Admit for Clinical Observation Score 7 - 10: 72.7% MACE over next 6 weeks - Early Invasive Strategies Course & Med Decision Making: Course & Med Decision Making Pertinent Labs and Imaging studies reviewed. (See chart for details) Your cause of dental pain, witll not be effective treated until the tooth is removed. Must follow up with dentist. Take Bactrim twice a day. Take Tylenol for pain. Impression: 1. Multiple dental caries 2. Dental infection at area 31, 32 [] Dragon Disclaimer: Dragon Disclaimer: This electronic medical record was generated, in whole or in part, using a voice recognition dictation system. Departure Departure: Referrals: PCP,JERMAN (PCP) Akshat Disclaimer This chart was dictated in whole or in part using Voice Recognition software in a busy, high-work load, and often noisy Emergency Department environment. It may contain unintended and wholly unrecognized errors or omissions. CHRISTIANNE SCHROEDER MD Sep 11, 2021 00:36
[2021-09-11] MEDS ORDERED: CEPHALEXIN 250 MG CAPSULE PO ONE (02:00)
[2021-09-11] MEDS ORDERED: oxyCODONE/APAP 5/325 1 TAB TABLET PO ONE (02:00)
[2021-09-11] MEDS ORDERED: SMZ/TMP 800/160MG TABLET. PO ONE (02:15)
== END 2021-09-11 02:28 | disposition home or self-care (01) ==
LOC: ER 00:26
DX: K02.9 Dental caries, unspecified (principal); K04.7 Periapical abscess without sinus; F17.210 Nicotine dependence, cigarettes, uncomplicated; Z88.0 Allergy status to penicillin
CPT/HCPCS: 99283-25